=== PATIENT | male | born 1990 | race Caucasian/White ===

== ENCOUNTER 2020-05-20 14:55 | Emergency (ER) | payer SELFPAY ==
[2020-05-20 15:01] VITALS: BP 153/95; PULSE 83; RESP 16; TEMP 36.9; O2SAT 99
--- NOTE | 2020-05-20 15:21 | ED.GENADUL_ITS ---
Discharge Plan Disposition Patient Disposition: HOME Condition: Improving Discharge Details Clinical Impression: Dental infection Primary Care Provider: None,None ED Provider: De Andrew Home Meds and New Rx's Prescriptions: New penicillin V potassium 500 mg tablet 500 mg PO TID 10 Days Qty: 30 RF: 0 Discharge Instructions Instructions: Dental Abscess (ED) Additional Instructions: Warm salt water gargles to speed recovery. Return for worsening swelling, difficulty swallowing, or any other acute concerns. Tylenol as needed for pain. Please phone [facility] to make a follow-up appointment for recheck. As we discussed you will likely need some dental extractions. Please take penicillin as prescribed. Medical Decision Making 30-year-old male with left mandibular buccal swelling and generally poor dentition with multiple dental caries and fractures. He has an odontogenic infection. Discussed with him needle I&D which he declines. He will follow-up with [facility]. I will place him on a course of penicillin. Understands homecare as well as plan for outpatient dentistry follow-up. HPI General Mode of arrival: ambulatory . Date/Time Provider Initiated Documentation: 05/20/20 15:00 . Limitations to Documentation: no limitations . Information obtained by: patient . History of Present Illness 30 year old M presents to the emergency department with the chief complaint of Left jaw swelling 4 days, described as moderate and similar to prior episodes, Quality is described as dull and constant, and is localized to the face, mouth and left. Patient reports no radiation. Patient started experiencing this day(s) and it has been constant. No relieving factors improve symptom(s), No exacerbating factors reported . Patient notes denies fever/chills, headaches, nausea/vomiting and shortness of breath. Patient did receive the following treatments prior to arrival, none Related Data Home Medications Medication Instructions Recorded Confirmed penicillin V potassium 500 mg PO TID 10 Days #30 tab 05/20/20 Previous Rx's Medication Instructions Recorded penicillin V potassium 500 mg PO TID 10 Days #30 tab 05/20/20 Allergies Allergy/AdvReac Type Severity Reaction Status Date / Time hydrocodone bitartrate AdvReac Mild Nausea Unverified 05/20/20 15:05 [From Vicodin] General Stated Complaint: DentalOral OBDULIO: 4 Review of Systems Narrative: No drooling, no change to voice, no difficulty breathing. 6 systems reviewed and otherwise negative [facility] Surgical History (Updated 03/16/13 @ 13:09 by Dee Olsen LPN) WISDOM TEETH REMOVAL STATES 2-3 YEARS AGO IN [place] Social History Smoking/Tobacco Use Status: Current every day Tobacco Type: cigarettes Smoking risk assessment performed?: Yes Drug use: Current Sobriety Substance use type: does not use Exam Narrative Exam Narrative: GEN: awake, alert, oriented 3. Pleasant, well groomed, interactive. HEAD: Normocephalic, atraumatic ENT: Mucous membranes moist, oropharynx with numerous partially broken teeth and dental caries, left mandibular buccal aspect swelling, tympanic membranes clear bilaterally, external ear exam unremarkable EYES: PERRL, EOMI NECK: Full ROM, no JAVON, no menigismus CHEST/RESP: No respiratory distress Neuro: Grossly normal neurologic exam, conversant, interactive. Psych: Speech fluent, thoughts congruent, affect normal Course Vital Signs Vital signs: Vital Signs Temperature 36.9 C 05/20/20 15:01 Pulse 83 05/20/20 15:01 Respiratory Rate 16 05/20/20 15:01 Blood Pressure 153/95 H 05/20/20 15:01 Pulse Oximetry 99 05/20/20 15:01 Temperature 36.9 C 05/20/20 15:01 Temperature Source Skin 05/20/20 15:01 Pulse 83 05/20/20 15:01 Respiratory Rate 16 05/20/20 15:01 Respiratory Effort Non-Labored 05/20/20 15:01 Blood Pressure 153/95 H 05/20/20 15:01 Blood Pressure Position Sitting 05/20/20 15:01 Pulse Oximetry 99 05/20/20 15:01 Oxygen Delivery Method Room Air 05/20/20 15:01 Oxygen Flow Rate 0 05/20/20 15:01 Pain Level 2 05/20/20 15:06
[2020-05-20] MEDS: Penicillin V POTASSIUM 500 MG TAB, 4 TABS/BTL PO (15:25)
== END 2020-05-20 15:26 | disposition home or self-care (01) ==
PROVIDERS: Emergency Provider Emergency Medicine
DX: R22.0 Localized swelling, mass and lump, head (principal); K04.7 Periapical abscess without sinus
CPT/HCPCS: 99283

== ENCOUNTER 2021-06-14 15:52 | Outpatient (REF) | payer BC, SELFPAY ==
[2021-06-14 19:57] LABS: HCT 51.6 % (40.0-50.0); HGB 17.1 g/dL (13.5-17.5); MCH 29.7 pg (27.0-33.0); MCHC 33.1 % (32.0-36.0); MCV 89.7 fL (80-95); MPV 9.4 fL (8.0-11.0); Platelet Count 306 10^3/uL (130-400); RBC 5.75 10^6/uL (4.36-5.78); RDW 12.5 % (11.8-14.1); RDW-SD 41.7 fL; WBC 9.59 10^3/uL (4.4-10.8)
[2021-06-14 20:25] LABS: ALT 52 U/L (16-63); AST 24 U/L (15-37); Albumin 4.3 g/dL (3.4-5.0); Alkaline Phosphatase 126 U/L (46-116); Anion Gap 10.8 mmol/L (3-11); BUN 21 mg/dL (7-18); Bilirubin, Total 0.5 mg/dL (0.2-1.0); CO2 27.2 mmol/L (21.0-32.0); CREATININE 1.2 mg/dL (0.70-1.30); Calcium 9.4 mg/dL (8.5-10.1); Calculated LDL 104 mg/dL (<100); Chloride 102 mmol/L (98-107); Cholesterol 194 mg/dL (<200); Glucose 91 mg/dL (74-106); HDL Cholesterol 38 mg/dL (40-60); Potassium 3.8 mmol/L (3.5-5.1); Sodium 140 mmol/L (136-145); Total Protein 7.7 g/dL (6.4-8.2); Triglyceride 260 mg/dL (<150)
[2021-06-17 10:48] LABS: Hepatitis C Ab w Rflx HCV PCR Negative (Negative)
[2021-06-17 13:43] LABS: HIV-1/2 Ag & Ab Screen Negative (Negative)
[2021-06-17 13:53] LABS: IgA 297 mg/dL (85-499); Interpretation (See Note); Tissue Transglutaminase IgA <1.2 U/mL (<4.0)
== END 2021-06-14 15:53 | disposition home or self-care (01) ==
LOC: NCHCN 15:52
PROVIDERS: Visit Provider Nurse Practitioner Family
DX: Z00.00 Encounter for general adult medical examination without abnormal findings (principal); R14.0 Abdominal distension (gaseous); R19.7 Diarrhea, unspecified; Z11.4 Encounter for screening for human immunodeficiency virus [HIV]; Z11.59 Encounter for screening for other viral diseases; Z13.220 Encounter for screening for lipoid disorders
CPT/HCPCS: 80053; 80061; 82784; 83516; 85027; 86803; 87389; 87449

== ENCOUNTER 2021-07-05 18:50 | Outpatient (REF) | payer BC, SELFPAY ==
[2021-07-07 11:25] LABS: COVID-19 RT-PCR UVMMC Result Negative (Negative)
== END 2021-07-05 18:51 | disposition home or self-care (01) ==
LOC: LBN 18:50
PROVIDERS: Visit Provider Physician Assistant Medical
DX: Z20.822 Contact with and (suspected) exposure to COVID-19 (principal); R05.8 Other specified cough
CPT/HCPCS: U0003

== ENCOUNTER 2022-11-01 17:19 | Emergency (ER) | payer OTHER, SELFPAY ==
[2022-11-01] VITALS (15 sets, daily range): BP systolic 135–162; BP diastolic 82–106; PULSE 79–100; RESP 12–22; TEMP 37.3; O2SAT 94–98
--- NOTE | 2022-11-01 17:15 | RT.EKG_ITS ---
APPROVED REPORT This report is currently processing and has not been officially signed by RAINE PUCKETT.. [facility] TIME OF PERMANENT APPROVAL IS 11/01/2022 17:34 Exam: Resting ECG Reason for Exam: sob Patient Location: E HR:110 bpm ECG Measurements Heart Rate 110 AXIS SC 130 P 74 QRSd 92 QRS 76 QT 310 T 25 QTc 419 Conclusion Sinus tachycardia...rate> 99
--- NOTE | 2022-11-01 17:35 | W.ED.GENAD ---
Discharge Plan Discharge Details Chief Complaint: GenMedical Primary Care Provider: None,None ED Provider: Nahid Mondragon Medical Decision Making EKG unremarkable. Single troponin normal. D-dimer normal. Electrolytes reveal creatinine 1.4. His baseline was 1.2. Patient was again need to drink more fluids. States that after having half a liter of IV fluids he feels a lot better. All his vital signs have normalized. HPI General Date/Time Provider Initiated Documentation: 11/01/22 17:21. HPI Narrative: States that since yesterday afternoon he feels wiped out, intermittently short of breath, feeling his heart racing, no chest pressure. Mild nausea no vomiting. [place] better this morning so he went to the gym for his workout. He did not do his cardio that he usually does. Just some weight. Following The workout he felt again like he did yesterday. No sick contacts other than his daughter who had a cold last week. No headaches. No neck pain. No cough. He did stop smoking about 8 months ago and he did have some cough back then but that has since resolved. No abdominal pain. No diarrhea. Urinating well. No rashes. Related Data Allergies Allergy/AdvReac Type Severity Reaction Status Date / Time hydrocodone bitartrate AdvReac Mild Nausea Unverified 05/20/20 15:05 [From Vicodin] General Stated Complaint: GenMedical OBDULIO: 3 Review of Systems Narrative: 10 point review of system is negative unless otherwise specified in the HPI PFSH All Active Problems (Updated 06/20/20 @ 00:02 by EL CHACKO) Cough (Acute) Laceration (Acute) Surgical History (Updated 03/16/13 @ 13:09 by Dee Olsen LPN) WISDOM TEETH REMOVAL STATES 2-3 YEARS AGO IN [place] Social History Smoking/Tobacco Use Status: Former Tobacco Use Tobacco: How many years used: 20 Smoking risk assessment performed?: Yes Alcohol Intake: current Alcohol Intake frequency: a few times a week Alcohol type: beer and hard liquor Drug use: Current Sobriety Substance use type: does not use Do you feel safe at home: Yes Do you feel safe in your relationship?: Yes Exam Narrative Exam Narrative: Awake alert x3, no acute distress Normocephalic atraumatic PERRLA EOMI MMM anicteric Chest is clear to auscultation bilaterally Heart regular rhythm and rate no murmurs Abdomen soft nondistended nontender Extremities no edema Upper and lower extremities 5/5 strength. Normal gait Neuro grossly intact Skin no rashes. Psych normal. Affect Course Vital Signs Vital signs: Vital Signs Temperature 37.3 C 11/01/22 17:25 Pulse 100 H 11/01/22 17:25 Respiratory Rate 20 11/01/22 17:25 Blood Pressure 162/106 H 11/01/22 17:25 Pulse Oximetry 98 11/01/22 17:25 Temperature 37.3 C 11/01/22 17:25 Temperature Source Oral 11/01/22 17:25 Pulse 100 H 11/01/22 17:25 Respiratory Rate 20 11/01/22 17:25 Respiratory Effort Normal, Non-Labored 11/01/22 17:33 Blood Pressure 162/106 H 11/01/22 17:25 Blood Pressure Position Supine 11/01/22 17:25 Pulse Oximetry 98 11/01/22 17:25 Oxygen Delivery Method Room Air 11/01/22 17:25 Oxygen Flow Rate 0 11/01/22 17:25 Pain Level 0 11/01/22 17:25
[2022-11-01] MEDS: Normal Saline 1,000 ML 1000 ML IV (17:52)
[2022-11-01 17:53] LABS: Abs Immature Grans 0.02 10^3/uL (0.0-0.06); Absolute Basophil Count 0.06 10^3/uL (0.0-0.2); Absolute Eosinophil Count 0.09 10^3/uL (0.0-0.7); Absolute Lymphocyte Count 2.09 10^3/uL (1.2-3.4); Absolute Monocyte Count 0.43 10^3/uL (0.1-0.8); Absolute Neutrophil Count 4.72 10^3/uL (1.2-6.7); Basophils % 0.8; Eosinophils % 1.2; HCT 51.3 % (40.0-50.0); HGB 17.5 g/dL (13.5-17.5); Immature Grans % 0.3; Lymphocytes % 28.2; MCH 29.4 pg (27.0-33.0); MCHC 34.1 % (32.0-36.0); MCV 86 fL (80-95); MPV 8.3 fL (8.0-11.0); Monocytes % 5.8; Neutrophils % 63.7; Platelet Count 275 10^3/uL (130-400); RBC 5.95 10^6/uL (4.36-5.78); RDW 12.3 % (11.8-14.1); RDW-SD 38.6 fL; WBC 7.41 10^3/uL (4.4-10.8)
[2022-11-01 18:19] LABS: Anion Gap 9.3 mmol/L (3-11); BUN 20 mg/dL (7-18); CO2 26.7 mmol/L (21.0-32.0); CREATININE 1.4 mg/dL (0.70-1.30); Calcium 9.4 mg/dL (8.5-10.1); Chloride 102 mmol/L (98-107); Estimated GFR 68.06 (mL/min/1.73m2); Glucose 105 mg/dL (74-106); Potassium 3.5 mmol/L (3.5-5.1); Sodium 138 mmol/L (136-145); Troponin I < 50 ng/L (<or=60)
[2022-11-01 18:26] LABS: TSH (W/Ref FT4) 2.92 uIU/mL (0.36-3.74)
[2022-11-01 18:28] LABS: D-Dimer 199 ng/mlFEU (<500)
== END 2022-11-01 19:00 | disposition home or self-care (01) ==
PROVIDERS: Emergency Provider Emergency Medicine
DX: R06.02 Shortness of breath (principal); R42 Dizziness and giddiness; R53.83 Other fatigue; E86.0 Dehydration; Z87.891 Personal history of nicotine dependence
CPT/HCPCS: 36415; 80048; 93005; 96360; 99284; 84443; 84484; 85025; 85379; 93010; 99283

== ENCOUNTER 2023-07-10 11:14 | Emergency (ER) | payer OTHER, SELFPAY ==
[2023-07-10 11:19] VITALS: BP 147/86; PULSE 111; RESP 18; TEMP 36.3; O2SAT 98
--- NOTE | 2023-07-10 11:31 | DI.CT_ITS ---
Exam(s) CT ABDOMEN PELVIS CTA EXAM: CT ABDOMEN PELVIS CTA CLINICAL HISTORY: lower abdomen pain, lower gi bleed. TECHNIQUE: Imaging Protocol: Axial CT angiography was performed with multi-slice acquisition and m ulti-planar and/or 3D reconstructions. CONTRAST MATERIAL: Intravenous: Omnipaque 350 Contrast volume:100mL Oral: No COMPARISON: No exams were available for comparison FINDINGS: ABDOMEN AND PELVIS: Abdomen: Celiac axis/mesenteric arteries: No evidence of occlusion or significant stenosis. Renal Arteries: No evidence of occlusion or significant stenosis. Aorta: No evidence of occlusion or significant stenosis. No aneurysm or dissection. Pelvis: Iliac Arteries: No evidence of occlusion or significant stenosis. Common Femoral Arteries: No evidence of occlusion or significant stenosis. ABDOMEN: Lung bases: Unremarkable. Liver: Normal density. No measurable mass. Portal, Superior Mesenteric, and Splenic Veins: Unremarkable. Gallbladder and Biliary Tract: No radiodense calculus or dilation. Pancreas: Normal density, no abnormal calcifications or inflammatory process. Spleen: Normal. Adrenals: No masses seen. Kidneys: Normal size, contour and axis. No radiodense stones or obstructive uropathy. There is a simp le cyst in the lower pole of the left kidney. No follow-up is recommended. Bowel: There is bowel wall thickening seen in proximal jejunal loops in the left abdomen suggesting i nfectious or inflammatory enteritis. There is no evidence of bowel obstruction. The stomach is inco mpletely distended limiting evaluation. No gross abnormalities identified. Appendix is unremarkable . Peritoneal Cavity: No ascites, collection or mesenteric inflammatory response. No free air. Lymph Nodes: Within normal limits. Bones: Within normal limits for the patient's age. Soft Tissues: There is a small fat containing umbilical hernia. There are small fat containing bilat eral inguinal hernias. PELVIS: Bladder: Symmetric distention, no gross wall thickening. Reproductive Organs: Unremarkable as visualized. Lymph Nodes: Within normal limits. Bones: Within normal limits. IMPRESSION: 1. No evidence of active GI bleed. 2. Wall thickening involving the proximal small bowel in the left abdomen consistent with inflammator y or infectious enteritis. Please correlate clinically. RADIATION DOSE DELIVERED: 3,053.75mGy.cm Total DLP DATA REPOSITORY: All CT scans at this facility are submitted to the National Radiology Data Registry (NRDR) Dose Index Registry (DIR) with the [employer] ([employer]). RADIATION OPTIMIZATION: All CT scans at this facility use at least one of these dose optimization te chniques: automated exposure control; mA and/or kV adjustment per patient size (includes targeted exa ms where dose is matched to clinical indication); or iterative reconstruction.
--- NOTE | 2023-07-10 11:32 | ED.GENADUL_ITS ---
HPI General Mode of arrival: ambulatory . Date/Time Provider Initiated Documentation: 07/10/23 11:15 . Limitations to Documentation: no limitations . Information obtained by: patient . History of Present Illness 33 year old M presents to the emergency department with the chief complaint of bloody bowel movements, described as moderate, Patient started experiencing this day(s) (3) and it has been constant. No relieving factors improve symptom(s), No exacerbating factors reported . Patient notes denies chest pain, fever/chills and shortness of breath. Patient did receive the following treatments prior to arrival, none Related Data Home Medications Medication Instructions Recorded Confirmed amoxicillin 875 mg-potassium 1 tab PO BID 7 days #14 tabs 07/10/23 clavulanate 125 mg tablet Previous Rx's Medication Instructions Recorded amoxicillin 875 mg-potassium 1 tab PO BID 7 days #14 tabs 07/10/23 clavulanate 125 mg tablet Allergies Allergy/AdvReac Type Severity Reaction Status Date / Time hydrocodone bitartrate AdvReac Mild Nausea Unverified 07/10/23 11:18 [From Vicodin] General Stated Complaint: GI Bleed OBDULIO: 2 Review of Systems All systems reviewed & are unremarkable except as noted in HPI and below Constitutional Constitutional: Denies chills, Denies fever(s) and Denies weakness Cardiovascular Cardiovascular: Denies chest pain and Denies dyspnea Respiratory Respiratory: Denies cough and Denies dyspnea Gastrointestinal Gastrointestinal: Reports abdominal pain, Denies nausea and Denies vomiting Genitourinary Genitourinary: Denies dysuria Integumentary/Breasts Skin/Breast: Denies rash Neurologic Neurologic: Denies weakness Exam Const General: no acute distress Orientation: alert [facility] Head: normal to inspection Ears: external ears normal General nose exam: external nose normal Mouth: moist mucous membranes Eyes General: appearance normal, both eyes and all related structures Neck Neck: normal visual inspection Resp Effort & Inspection: normal respiratory effort and able to speak in complete sentences Cardio Rate: regular rate GI Palpation: soft, not firm, no guarding and tender Skin General skin exam: no rashes or lesions noted Neuro General: patient alert and patient oriented x3 Extrem General: normal to inspection Psych Mental Status: mental status grossly normal Course Vital Signs Vital signs: Vital Signs Temperature 36.3 C L 07/10/23 11:19 Pulse 111 H 07/10/23 11:19 Respiratory Rate 18 07/10/23 11:19 Blood Pressure 147/86 H 07/10/23 11:19 Pulse Oximetry 98 07/10/23 11:19 Temperature 36.3 C L 07/10/23 11:19 Temperature Source Oral 07/10/23 11:19 Pulse 111 H 07/10/23 11:19 Respiratory Rate 18 07/10/23 11:19 Respiratory Effort Normal, Non-Labored 07/10/23 11:23 Blood Pressure 147/86 H 07/10/23 11:19 Pulse Oximetry 98 07/10/23 11:19 Pain Level 7 07/10/23 11:19 Medical Decision Making 33-year-old male with no chronic medical problems, who comes in with 3 days of lower abdominal cramping and bright red blood per rectum. He denies any fevers, nausea vomiting, chest pain, difficulty breathing. He is ambulating on arrival, conscious and alert and oriented x 4. His abdomen is soft and nondistended, has some tenderness in the left lower quadrant. On rectal exam has no external hemorrhoids, no anal fissures. Given his reported lower abdominal cramping and pain along with the bright red blood per rectum we will proceed with CBC CMP lipase and obtain CTA abdomen and pelvis. labs unremarkable, no anemia and CTA without significant acute findings, does have wall thickening of the small bowel consistent with inflammatory or infectious enteritis. Patient is stable has minimal left lower quadrant tenderness. Given reassuring workup feel he can be discharged and follow-up with general surgery to discuss having an outpatient colonoscopy. Given the CT findings of potential infectious enteritis will cover with a dose of Augmentin and send a prescription to the pharmacy for him. He is stable for discharge, return precautions given Differential Diagnosis Differential Diagnosis: Internal hemorrhoids, anemia, diverticulitis Imaging Data Radiologic Study: Attestation: I personally reviewed and interpreted this imaging study as follows: Imaging: CT Scan Radiologist's impression: IMPRESSION: 1. No evidence of active GI bleed. 2. Wall thickening involving the proximal small bowel in the left abdomen consistent with inflammatory or infectious enteritis. Please correlate clinically. Quality:SDOH Health Related Social Needs: No Data to Display PFSH All Active Problems (Updated 07/10/23 @ 13:40 by Gordy Ford MD) Lower gastrointestinal bleed (Acute) Laceration (Acute) Cough (Acute) Surgical History (Updated 03/16/13 @ 13:09 by Dee Olsen LPN) WISDOM TEETH REMOVAL STATES 2-3 YEARS AGO IN [place] Social History Smoking/Tobacco Use Status: Former Tobacco Use Quit Date: 03/25/22 Tobacco: How many years used: 20 Smoking risk assessment performed?: Yes Alcohol Intake: current Alcohol Intake frequency: a few times a week Alcohol type: beer and hard liquor Drug use: Current Sobriety Substance use type: does not use and former substance user Housing: house Do you feel safe at home: Yes Do you feel safe in your relationship?: Yes PAWSS Have you Been Recently Intoxicated or Drunk Within the Last 30 days?: No Have you Ever Experienced Previous Episodes of Alcohol Withdrawal?: No Have you ever Experienced Withdrawal Seizures?: No Have you ever Experienced Delirium Tremens(DT)s?: No Have you ever undergone Alcohol Rehabilitation Treatment (i.e, inpt ot outpatient treatment programs)?: No Have you ever Experienced Blackouts?: Yes Have you ever Combined Alcohol with other Downers within the last 90 days?: No Have you ever Combined Alcohol with any other Substance of Abuse during the last 90 days?: No Positive Blood Alcohol level on Presentation? [PCS.BAL]: No Evidence of Increased Autonomic Activity (i.e. HR>120, tremor, sweating, agitation, nausea)?: No Result: 1 Discharge Plan Disposition Patient Disposition: Home Condition: Stable Discharge Details Clinical Impression: Lower gastrointestinal bleed Primary Care Provider: Unknown,Unknown ED Provider: Gordy Ford Home Meds and New Rx's Prescriptions: New amoxicillin-pot clavulanate 875-125 mg tablet 1 tab PO BID 7 Days Qty: 14 0RF Discharge Instructions Additional Instructions: Your blood work did not show any anemia. Your CAT scan did not show any concerning findings other than a small area of your colon that was mildly inflamed. You should be contacted with the appointment to follow-up with general surgery If you feel more ill, have severe worsening abdominal pain, or new symptoms such as difficulty breathing return to the emergency department for reevaluation
[2023-07-10 11:46] LABS: Abs Immature Grans 0.03 10^3/uL (0.0-0.06); Absolute Basophil Count 0.03 10^3/uL (0.0-0.2); Absolute Eosinophil Count 0.02 10^3/uL (0.0-0.7); Absolute Lymphocyte Count 0.86 10^3/uL (1.2-3.4); Absolute Neutrophil Count 8.69 10^3/uL (1.2-6.7); Basophils % 0.3; Eosinophils % 0.2; HCT 49.8 % (40.0-50.0); HGB 16.8 g/dL (13.5-17.5); Immature Grans % 0.3; Lymphocytes % 8.4; MCHC 33.7 % (32.0-36.0); MCV 83 fL (80-95); MPV 8.1 fL (8.0-11.0); Monocytes % 5.9; Neutrophils % 84.9; Platelet Count 273 10^3/uL (130-400); RBC 5.99 10^6/uL (4.36-5.78); RDW 12.7 % (11.8-14.1); RDW-SD 38.4 fL; WBC 10.23 10^3/uL (4.4-10.8)
[2023-07-10 12:01] LABS: ALT 40 U/L (16-63); AST 17 U/L (15-37); Albumin 4.2 g/dL (3.4-5.0); Alkaline Phosphatase 112 U/L (46-116); Anion Gap 9.8 mmol/L (3-11); BUN 14 mg/dL (7-18); Bilirubin, Total 0.9 mg/dL (0.2-1.0); CO2 27.2 mmol/L (21.0-32.0); CREATININE 1.2 mg/dL (0.70-1.30); Calcium 9.2 mg/dL (8.5-10.1); Chloride 100 mmol/L (98-107); Estimated GFR 81.38 (mL/min/1.73m2); Glucose 104 mg/dL (74-106); Lipase 38 U/L (16-77); Magnesium 1.8 mg/dL (1.8-2.4); Sodium 137 mmol/L (136-145); Total Protein 8.1 g/dL (6.4-8.2)
[2023-07-10 12:03] LABS: INR 1.1 (0.9-1.1); Prothrombin Time 11.2 sec (9.1-11.1)
[2023-07-10] MEDS: Omnipaque 350 MG/ML 100 ML BTL IJ (12:31)
[2023-07-10] MEDS: Normal Saline - Diluent 50 ML VIAL IJ (12:32)
--- OUTSIDE RECORDS SUMMARY | 2023-07-10 13:12 | XMS_ITS | Continuity of Care Document ---
Author Name Unknown Organization [facility] Occup[facility] Address [address] [place] [address] Encounter [facility] FIN NBR [id number] Date(s): 07/14/22 - 07/14/22 [facility] Occupational [facility] [address] [place], [place] [address] Encounter Diagnosis Extensor tendinitis of hand(Discharge Diagnosis) - 07/14/22 Discharge Disposition: Home or Self Care Attending Physician: Kip Ball. PA Allergies, Adverse Reactions, Alerts No Known Medication Allergies Functional Status 07/14/22 Other exposure to Infectious Disease Non e Medications No Known Medications Problem List No Known Problems Vital Signs Most recent to oldest [Reference Range]: 1 Peripheral Pulse Rate [60-100 bpm] 78 bp m (07/14/22 9:54 AM) Blood Pressure [90-140/60-90 mmHg] 155/1 00mmHg *HI* (07/14/22 9:54 AM) Weight 114.76 kg (07/14/22 9:54 AM) Weight Measured (lbs) 253.002 lb (07/14/22 9:54 AM) Height 180.34 cm (07/14/22 9:54 AM) Height/Length Measured (inches) 71 inch (07/14/22 9:54 AM) BSA Measured 2.4 m2 (07/14/22 9:54 AM) Body Mass Index 35.29 kg/m2 (07/14/22 9:54 AM) Social History Social History Type Response Tobacco Former tobacco user Tobacco Use:. Sex Physician Outpatient Note * Kip Ball. PA: PERFORM Event Display: Office Clinic Note Physician Authored Date: [id number] YARI MULLEN :1990 Age:32 years Sex:Male Visit Date:07/14/2022 Chief Complaint wc follow up pt reports right wrist painful to touch History of Present Illness Follow-up right wrist pain. ??Patient notes 90 to 95% better. ??He feels and go back to full activity at work. ??He denies any new complaints. ??Did not have direct injury. ??Diagnosed with tendinitis.?? He denies any numbness, tingling, weakness. Physical Exam Vitals & Measurements HR:??78??(Peripheral)?? BP:??155/100?? SpO2:??99%?? HT:??180.34??cm?? WT:??114.76??kg?? BMI:??35.29?? Pain Score:??1?? BSA:??2.4?? Well-appearing no acute distress. ??Examination of the right wrist shows normal strength and function in all motions. ??He has normal driftman strength.?? Only minimal discomfort on wrist extension. ??Noelbow tenderness.?? No swelling. Assessment/Plan 1.??Extensor tendinitis of hand??M77.8 At this time I feel he can return to work full activity. ??No need for follow-up unless he does notcontinue to improve. ??Continue home exercises.?? Recommend gentle stretching prior to working. Problem List/Past Medical History Ongoing No chronic problems Historical No qualifying data Medications No active medications Allergies No Known Medication Allergies Social History Electronic Cigarette/Vaping Electronic Cigarette Use: Never. Tobacco Former tobacco user Tobacco Use:. Electronically Signed on 07/14/22 10:25 AM Kip DIAZ
--- OUTSIDE RECORDS SUMMARY | 2023-07-10 13:12 | XMS_ITS | Continuity of Care Document ---
Author Name Unknown Organization [facility] Occupationa l Health Address [address] [place] [address] Encounter [facility] NBR [id number] Date(s): 07/03/22 - 07/03/22 [facility] Occupational Health [address], [place] [address] Encounter Diagnosis Wrist strain(Discharge Diagnosis) - 07/03/22 Extensor tendinitis of hand(Discharge Diagnosis) - 07/03/22 Discharge Disposition: Home or Self Care Allergies, Adverse Reactions, Alerts No Known Medication Allergies Functional Status 07/03/22 Other exposure to Infectious Disease Non e Medications No Known Medications Problem List No Known Problems Vital Signs Most recent to oldest [Reference Range]: 1 Peripheral Pulse Rate [60-100 bpm] 90 bp m (07/03/22 9:21 AM) Blood Pressure [90-140/60-90 mmHg] 152/8 6mmHg *HI* (07/03/22 9:21 AM) Weight 114.76 kg (07/03/22 9:21 AM) Weight Measured (lbs) 253.002 lb (07/03/22 9:21 AM) Height 180.34 cm (07/03/22 9:21 AM) Height/Length Measured (inches) 71 inch (07/03/22 9:21 AM) BSA Measured 2.4 m2 (07/03/22 9:21 AM) Body Mass Index 35.29 kg/m2 (07/03/22 9:21 AM) Social History Social History Type Response Tobacco Former tobacco user Tobacco Use:. Sex Hospital Discharge Instructions Patient Education 07/03/2022 08:43:59 Tendinitis Tendinitis Tendinitis is inflammation of a tendon. A tendon is a strong cord of tissue that connects muscle tobone. Tendinitis can affect any tendon, but it most commonly affects the: ??? Shoulder tendon (rotator cuff). ??? Ankle tendon (Achilles tendon). ??? Elbow tendon (triceps tendon). ??? Tendons in the wrist. What are the causes? This condition may be caused by: ??? Overusing a tendon or muscle. This is common. ??? Age-related wear and tear. ??? Injury. ??? Inflammatory conditions, such as arthritis. ??? Certain medicines. What increases the risk? You are more likely to develop this condition if you do activities that involve the same movements over and over again (repetitive motions). What are the signs or symptoms? Symptoms of this condition may include: ??? Pain. ??? Tenderness. ??? Mild swelling. ??? Decreased range of motion. How is this diagnosed? This condition is diagnosed with a physical exam. You may also have tests, such as: ??? Ultrasound. This uses sound waves to make an image of the inside of your body in the affected area. ??? MRI. How is this treated? This condition may be treated by resting, icing, applying pressure (compression), and raising (elevating) the affected area above the level of your heart. This is known as RICE therapy. Treatment mayalso include: ??? Medicines to help reduce inflammation or to help reduce pain. ??? Exercises or physical therapy to strengthen and stretch the tendon. ??? A brace or splint. ??? Surgery. This is rarely needed. Follow these instructions at home: If you have a splint or brace: ??? Wear the splint or brace as told by your health care provider. Remove it only as told by your health care provider. ??? Loosen the splint or brace if your fingers or toes tingle, become numb, or turn cold and blue. ??? Keep the splint or brace clean. ??? If the splint or brace is not waterproof: ??? Do not let it get wet. ??? Cover it with a watertight covering when you take a bath or shower. Managing pain, stiffness, and swelling ??? If directed, put ice on the affected area. ??? If you have a removable splint or brace, remove it as told by your health care provider. ??? Put ice in a plastic bag. ??? Place a towel between your skin and the bag. ??? Leave the ice on for 20 minutes, 2???3 times a day. ??? Move the fingers or toes of the affected limb often, if this applies. This can help to prevent stiffness and lessen swelling. ??? If directed, raise (elevate) the affected area above the level of your heart while you are sitting or lying down. ??? If directed, apply heat to the affected area before you exercise. Use the heat source that yourhealth care provider recommends, such as a moist heat pack or a heating pad. ??? Place a towel between your skin and the heat source. ??? Leave the heat on for 20???30 minutes. ??? Remove the heat if your skin turns bright red. This is especially important if you are unable to feel pain, heat, or cold. You may have a greater risk of getting burned. Driving ??? Do not drive or use heavy machinery while taking prescription pain medicine. ??? Ask your health care provider when it is safe to drive if you have a splint or brace on any part of your arm or leg. Activity ??? Rest the affected area as told by your health care provider. ??? Return to your normal activities as told by your health care provider. Ask your health care provider what activities are safe for you. ??? Avoid using the affected area while you are experiencing symptoms of tendinitis. ??? Do exercises as told by your health care provider. General instructions ??? If you have a splint, do not put pressure on any part of the splint until it is fully hardened.This may take several hours. ??? Wear an elastic bandage or compression wrap only as told by your health care provider. ??? Take [id number] and prescription medicines only as told by your health care provider. ??? Keep all follow-up visits as told by your health care provider. This is important. Contact a health care provider if: ??? Your symptoms do not improve. ??? You develop new, unexplained problems, such as numbness in your hands. Summary ??? Tendinitis is inflammation of a tendon. ??? You are more likely to develop this condition if you do activities that involve the same movements over and over again. ??? This condition may be treated by resting, icing, applying pressure (compression), and elevatingthe area above the level of your heart. This is known as RICE therapy. ??? Avoid using the affected area while you are experiencing symptoms of tendinitis. This information is not intended to replace advice given to you by your health care provider. Make sure you discuss any questions you have with your health care provider. Document Revised: 11/16/2018 Document Reviewed: 09/29/2018 [employer] Charge Patient Education ?? 2021 [employer]. Physician Outpatient Note * Cyndee Hills APRN: PERFORM Event Display: Office Clinic Note Physician Authored Date: [id number] YARI MULLEN :1990 Age:32 years Sex:Male Visit Date:07/03/2022 Chief Complaint pt reports putting pressure on right wrist/hand at work right wrist pain and swelling History of Present Illness Patient is a 32-year-old male who presents today with a chief complaint of right wrist??pain. ??He states while working??over the last few days he had increased tenderness to the??dorsal aspect of the right wrist, causing flexion and extension to be uncomfortable. ??He noticed swelling. Physical Exam Vitals & Measurements HR:??90??(Peripheral)?? BP:??152/86?? SpO2:??96%?? HT:??180.34??cm?? WT:??114.76??kg?? BMI:??35.29?? Pain Score:??7?? BSA:??2.4?? General: Well-appearing, no acute distress, alert and oriented x3. Skin: No concerning lesions in examined areas. Head: Normal cephalic without trauma or injury. Neck: Supple, nontender, normal range of motion Musculoskeletal:??Tenderness to the dorsal aspect of the wrist??and forearm,??extension of the??fourth and??fifth??phalanges??limited but intact. Medical Decision Making: Patient was evaluated for a wrist injury. ??He was placed in a supportive??brace for stability and comfort, I recommended that he RICE and take ibuprofen??routinely every 6-8 hours over the next few days.?? He was provided modifications and he will recheck in 1 week. Assessment/Plan 1.??Wrist strain??S66.919A 2.??Extensor tendinitis of hand??M77.8 Patient Instructions Rest, ice, supportive??wrist splint??while working??and as needed. ??Modifications per documentation??ibuprofen 600 mg every 6-8 hours, acetaminophen.?? Recheck 1 week Patient Education Tendinitis Problem List/Past Medical History Ongoing No chronic problems Historical No qualifying data Medications No active medications Allergies No Known Medication Allergies Social History Electronic Cigarette/Vaping Electronic Cigarette Use: Never. Tobacco Former tobacco user Tobacco Use:. Electronically Signed on 07/03/22 10:21 AM Cyndee Hills APRN Outpatient Summary note * Cyndee Hills APRN: PERFORM Event Display: Ambulatory Patient Summary Authored Date: [id number] YARI MULLEN :1990 Age:32 years Sex:Male Visit Date:07/03/2022 Ambulatory Visit Instructions We would like to thank you for allowing us to assist you with your healthcare needs. The following includes patient education materials and information regarding your injury/illness. After you leave the office, you may get your health information including your test results, physician notes and discharge information by accessing your Patient Portal. If you do not have a patient portal account set up, please contact __. Your Next Steps Instructions From Your Care Team Rest, ice, supportive??wrist splint??while working??and as needed. ??Modifications per documentation??ibuprofen 600 mg every 6-8 hours, acetaminophen.?? Recheck 1 week Your Summary Your Diagnosis Wrist strain Extensor tendinitis of hand Allergies No Known Medication Allergies Education Materials Tendinitis Tendinitis is inflammation of a tendon. A tendon is a strong cord of tissue that connects muscle tobone. Tendinitis can affect any tendon, but it most commonly affects the: ? Shoulder tendon (rotator cuff). ? Ankle tendon (Achilles tendon). ? Elbow tendon (triceps tendon). ? Tendons in the wrist. What are the causes? This condition may be caused by: ? Overusing a tendon or muscle. This is common. ? Age-related wear and tear. ? Injury. ? Inflammatory conditions, such as arthritis. ? Certain medicines. What increases the risk? You are more likely to develop this condition if you do activities that involve the same movements over and over again (repetitive motions). What are the signs or symptoms? Symptoms of this condition may include: ? Pain. ? Tenderness. ? Mild swelling. ? Decreased range of motion. How is this diagnosed? This condition is diagnosed with a physical exam. You may also have tests, such as: ? Ultrasound. This uses sound waves to make an image of the inside of your body in the affected area. ? MRI. How is this treated? This condition may be treated by resting, icing, applying pressure (compression), and raising (elevating) the affected area above the level of your heart. This is known as RICE therapy. Treatment mayalso include: ? Medicines to help reduce inflammation or to help reduce pain. ? Exercises or physical therapy to strengthen and stretch the tendon. ? A brace or splint. ? Surgery. This is rarely needed. Follow these instructions at home: If you have a splint or brace: ? Wear the splint or brace as told by your health care provider. Remove it only as told by your health care provider. ? Loosen the splint or brace if your fingers or toes tingle, become numb, or turn cold and blue. ? Keep the splint or brace clean. ? If the splint or brace is not waterproof: ? Do not let it get wet. ? Cover it with a watertight covering when you take a bath or shower. Managing pain, stiffness, and swelling ? If directed, put ice on the affected area. ? If you have a removable splint or brace, remove it as told by your health care provider. ? Put ice in a plastic bag. ? Place a towel between your skin and the bag. ? Leave the ice on for 20 minutes, 2???3 times a day. ? Move the fingers or toes of the affected limb often, if this applies. This can help to prevent stiffness and lessen swelling. ? If directed, raise (elevate) the affected area above the level of your heart while you are sitting or lying down. ? If directed, apply heat to the affected area before you exercise. Use the heat source that your health care provider recommends, such as a moist heat pack or a heating pad. ? Place a towel between your skin and the heat source. ? Leave the heat on for 20???30 minutes. ? Remove the heat if your skin turns bright red. This is especially important if you are unable to feel pain, heat, or cold. You may have a greater risk of getting burned. Driving ? Do not drive or use heavy machinery while taking prescription pain medicine. ? Ask your health care provider when it is safe to drive if you have a splint or brace on any part ofyour arm or leg. Activity ? Rest the affected area as told by your health care provider. ? Return to your normal activities as told by your health care provider. Ask your health care provider what activities are safe for you. ? Avoid using the affected area while you are experiencing symptoms of tendinitis. ? Do exercises as told by your health care provider. General instructions ? If you have a splint, do not put pressure on any part of the splint until it is fully hardened. This may take several hours. ? Wear an elastic bandage or compression wrap only as told by your health care provider. ? Take qzou-bwd-cioohla and prescription medicines only as told by your health care provider. ? Keep all follow-up visits as told by your health care provider. This is important. Contact a health care provider if: ? Your symptoms do not improve. ? You develop new, unexplained problems, such as numbness in your hands. Summary ? Tendinitis is inflammation of a tendon. ? You are more likely to develop this condition if you do activities that involve the same movements over and over again. ? This condition may be treated by resting, icing, applying pressure (compression), and elevating thearea above the level of your heart. This is known as RICE therapy. ? Avoid using the affected area while you are experiencing symptoms of tendinitis. This information is not intended to replace advice given to you by your health care provider. Make sure you discuss any questions you have with your health care provider. Document Revised: 11/16/2018 Document Reviewed: 09/29/2018 [employer] Charge Patient Education ?? 2021 [employer] Electronically Signed on: 07/03/2022 09:44 ESTSigned by:CHAY
--- OUTSIDE RECORDS SUMMARY | 2023-07-10 13:12 | XMS_ITS | Continuity of Care Document ---
Author Name Unknown Organization [facility] Address [address] [place] [id number] Encounter [facility] FIN NBR [id number] Date(s): 04/28/22 - 04/28/[address] [address]- Discharge Disposition: Left Without Being Seen Attending Physician: John Hernandez MD
--- OUTSIDE RECORDS SUMMARY | 2023-07-10 13:12 | XMS_ITS | Continuity of Care Document ---
Author Name Unknown Organization [facility] Address [address] [place] [address] Encounter [facility] NBR [id number] Date(s): 07/03/22 - 07/03/22 [facility] [address] [place], [place] [address] Encounter Diagnosis Strain of unspecified muscle, fascia and tendon at wrist and hand level, unspecified hand, initial encounter(Final) - Discharge Disposition: Home or Self Care Attending Physician: Cyndee Hills APRN Admitting Physician: Cyndee Hills APRN Allergies, Adverse Reactions, Alerts No Known Medication Allergies Problem List No Known Problems Results Radiology Reports * Exam Date Time Procedure Performing Provider Status 07/03/22 9:52 AM XR Wrist Complete 3+ Views Right Radha Cook (Verified) Notes: (XR Wrist Complete 3+ Views Right) Reason For Exam: pain after injury XR Wrist Complete 3+ Views Right EXAM DESCRIPTION: XR Wrist Complete 3+ Views Right 07/03/2022 INDICATION: PAIN AFTER INJURY COMPARISON: None FINDINGS: No acute fracture, dislocation or bone destructive process. Joint spaces are maintained. No radiographic foreign bodies are seen. IMPRESSION: 1. No acute fracture, dislocation or bone destructive process. JOB #: [id number] Final Signed by: Francis Merida MD Signed (Electronic Signature): 07/03/2022 10:01 am Social History Social History Type Response Tobacco Former tobacco user Tobacco Use:. Sex XR Wrist - right GE 3 Views * Francis Merida MD: VERIFY, VERIFY Event Display: Report EXAM DESCRIPTION: XR Wrist Complete 3+ Views Right 07/03/2022 INDICATION: PAIN AFTER INJURY COMPARISON: None FINDINGS: No acute fracture, dislocation or bone destructive process. Joint spaces are maintained. No radiographic foreign bodies are seen. IMPRESSION: 1. No acute fracture, dislocation or bone destructive process. JOB #: [id number] Final Signed by: Francis Merida MD Signed (Electronic Signature): 07/03/2022 10:01 am
--- OUTSIDE RECORDS SUMMARY | 2023-07-10 13:12 | XMS_ITS | Continuity of Care Document ---
Author Name Unknown Organization [facility] Occupationa l Health Address [address] [place] [address] Encounter [facility] NBR [id number] Date(s): 12/18/22 - 12/18/22 [facility] Occupational Health [address] [place], [place] [address] Encounter Diagnosis Bee sting(Discharge Diagnosis) - 12/18/22 Discharge Disposition: Home or Self Care Attending Physician: Genaro CARRION, Wendie Allergies, Adverse Reactions, Alerts No Known Medication Allergies Medications Claritin 10 mg oral tablet 10 mg = 1 tab, Oral, Daily, # 14 tab, 0 Refill(s), Pharmacy: [id number] Start Date: 12/18/22 Stop Date: 01/01/23 Status: Ordered triamcinolone 0.5% topical ointment 1 bridger, Topical, BID, # 60 g, 1 Refill(s), Pharmacy: [id number] Start Date: 12/18/22 Stop Date: 01/15/23 Status: Ordered Problem List No Known Problems Vital Signs Most recent to oldest [Reference Range]: 1 Temperature Tympanic [36.6-37.9 Deg C] 3 6.7 Deg C (12/18/22 11:35 AM) Peripheral Pulse Rate [60-100 bpm] 70 bp m (12/18/22 11:35 AM) Blood Pressure [90-140/60-90 mmHg] 149/9 4mmHg *HI* (12/18/22 11:35 AM) Weight 106.59 kg (12/18/22 11:35 AM) Weight Measured (lbs) 234.99 lb (12/18/22 11:35 AM) Height 180.34 cm (12/18/22 11:35 AM) Height/Length Measured (inches) 71 inch (12/18/22 11:35 AM) BSA Measured 2.31 m2 (12/18/22 11:35 AM) Body Mass Index 32.77 kg/m2 (12/18/22 11:35 AM) Social History Social History Type Response Tobacco Former tobacco user Tobacco Use:. Sex Physician Outpatient Note * Wendie Lam PA-C: PERFORM Event Display: Office Clinic Note Physician Authored Date: [id number] YARI MULLEN :1990 Age:32 years Sex:Male Visit Date:12/18/2022 Chief Complaint wc initial pt reports he was mowing and weedwhacking at work and was stung by something, swelling, itching, burning sensation felt feverish last night happened on thursday, symptoms getting worse History of Present Illness Patient is a 32-year-old male who presents to the occupational health office today??for??3-day history of??painful, itchy??rash of the right??sided thoracic back. ??He was stung by some insect while at work??3 days ago??while weed whacking, suspect it was a bee. ??He has not tried anything topically??or orally for symptoms.?? No history of severe allergic reaction??in the past. ??No swelling of the face lips or tongue, abdominal pain, numbness or tingling sensation. Physical Exam Vitals & Measurements T:??36.7?C ??(Tympanic)?? HR:??70??(Peripheral)?? BP:??149/94?? SpO2:??99%?? HT:??180.34??cm?? WT:??106.59??kg?? BMI:??32.77?? Pain Score:??6?? BSA:??2.31?? He is well-appearing and in no acute distress, very pleasant. Right-sided thoracic back: There is a 4??cm area of induration??with excoriations, poorly demarcated. ??No fluctuance, puncta or retained??insect stinger.?? Nontender to palpation. No swelling of the face lips or tongue. Lung sounds are clear. ??No wheezing. Medical Decision Making: Insect stin-year-old male that sustained insect sting to the right side thoracic back 3 days ago??that has been progressively??worsening.?? No evidence of cellulitis.?? I will start him on topical triamcinolone cream??and 10 mg Claritin at bedtime for symptom management. ??Return precautions provided.?? No work restrictions. ??He will follow-up as needed. Assessment/Plan 1.??Bee sting??T63.441A Ordered: Claritin 10 mg oral tablet, 10 mg = 1 tab, Oral, Daily, # 14 tab, 0 Refill(s), Pharmacy: [facility] triamcinolone 0.5% topical ointment, 1 bridger, Topical, BID, # 60 g, 1 Refill(s), Pharmacy: [facility] ?? Problem List/Past Medical History Ongoing No chronic problems Historical No qualifying data Medications Claritin 10 mg oral tablet, 10 mg= 1 tab, Oral, Daily triamcinolone 0.5% topical ointment, 1 bridger, Topical, BID, 1 refills Allergies No Known Medication Allergies Social History Electronic Cigarette/Vaping Electronic Cigarette Use: Never. Tobacco Former tobacco user Tobacco Use:. Electronically Signed on 12/18/22 11:58 AM Wendie Lam PA-C
[2023-07-10] MEDS: Amoxicillin 875/Clav. 125 TAB PO (14:02)
--- NOTE | 2023-07-11 02:08 | NUR.NOTE ---
Referral faxed to [phone] General Surgery for Lower GI Bleeding.
--- NOTE | 2023-07-11 02:15 | NUR.NOTE ---
Referral faxed to [facility] General Surgery for Lower GI Bleeding to follow-up next week.
== END 2023-07-10 14:03 | disposition home or self-care (01) ==
PROVIDERS: Emergency Provider Emergency Medicine
DX: K92.2 Gastrointestinal hemorrhage, unspecified (principal); R10.32 Left lower quadrant pain; Z87.891 Personal history of nicotine dependence
CPT/HCPCS: 36415; 80053; 83690; 86850; 86900; 86901; 99285; 74174; 81003; 83735; 85025; 85610; 85730; 99284; J3490

== ENCOUNTER 2023-07-31 17:07 | Outpatient (REF) | payer OTHER, SELFPAY ==
[2023-07-31 16:04] LABS: ALT 44 U/L (16-63); AST 23 U/L (15-37); Alkaline Phosphatase 124 U/L (46-116); Anion Gap 7.6 mmol/L (3-11); BUN 18 mg/dL (7-18); Bilirubin, Total 0.4 mg/dL (0.2-1.0); CO2 28.4 mmol/L (21.0-32.0); CREATININE 1.3 mg/dL (0.70-1.30); Calcium 9.1 mg/dL (8.5-10.1); Chloride 106 mmol/L (98-107); Estimated GFR 73.93 (mL/min/1.73m2); Glucose 84 mg/dL (74-106); Potassium 4.7 mmol/L (3.5-5.1); Sodium 142 mmol/L (136-145); TSH 1.71 uIU/Ml (0.36-3.74); Total Protein 7.3 g/dL (6.4-8.2)
== END 2023-07-31 17:08 | disposition home or self-care (01) ==
LOC: NCHCN 17:07
PROVIDERS: Visit Provider Student in an Organized Health Care Education/Training Program
DX: R07.9 Chest pain, unspecified (principal)
CPT/HCPCS: 80053; 84443

== ENCOUNTER → 2023-08-20 02:13 | Outpatient (CLI) | payer OTHER, SELFPAY ==
--- NOTE | 2023-08-20 | ETT_ITS ---
APPROVED REPORT Exam: Exercise Treadmill Patient Location: Out-Patient Room/Bed: Stress Nurse: Kacy Gonzalez RN Ordering Provider:AURY METZGER, Contact Number: [phone] BMI: 33.19 Baseline Rhythm: Sinus Rhythm Indications: Chest Pain, History of smoking Medical History Medical History: Former smoker Cardiac Medications: None Allergies: Hydrocodone Cardiac Risk Factors: Remote family history, former smoker Previous Cardiac Procedures: None Pretest Chest Pain Characteristics: None Exercise History: Indeterminate Physical Disabilities: None Lung Sounds: LCTA Heart Sounds: S1/S2, Regular Stress Test Details Test: Exercise stress testing was performed using a Joshua protocol. Rest Stress HR Resting HR Supine: 69 bpm Max Heart Rate (APMHR): 186 bpm Resting HR Standin bpm Target HR (85% APMHR): 158 bpm Max HR Achieved: 185 bpm % of APMHR: 99 Recovery HR: 81 bpm HR response to stress: Accelerated HR response to stress BP Resting BP Supine: 128/76 mmHg Resting BP Standin/84 mmHg Max BP: 192/78 mmHg Recovery BP: 136/80 mmHg BP response to stress: Normal blood pressure response to stress. ECG Resting ECG: Sinus Rhythm Ectopy: None Stress ECG: Sinus Rhythm, ST Change: No significant ST segment changes noted Recovery ECG: Sinus Rhythm Recovery ST Change: No significant ST segment changes noted Recovery Arrhythmia: None Clinical Reason for Termination: Target HR Achieved, SVT Stress Symptoms: Leg Fatigue Exercise duration: 9 min10 sec Highest Stage Reached: Stage 4: 4.2 mph at 16% grade. Exercise capacity: 10.4 METs Angina Score: None [place] Treadmill Score: 6.2 Rate Pressure Product: [id number] Stress ECG Conclusion 1. Resting electrocardiogram was normal 2. Patient exercised on Joshua protocol and completed a workload of 10.4 METS 3. Normal hemodynamic response to exercise. Patient achieved greater than 100% of predicted heart ra te for age 4. Patient had a rate related right bundle branch block. This is nonspecific. There was no electroc ardiographic evidence of myocardial ischemia [place] Treadmill Score is 6.2 which is Low risk. Stress Test Summary STAGE Time (mins) Speed (mph) Grade (%) HR BP SpO2 SYMPTOMS METS Supine 69 128/76 98% Standing 71 130/84 1 3 1.7 10 102 140/82 4.5 2 6 2.5 12 121 146/80 7 3 9 3.4 14 171 SVT - asymptomatic 10 1 min recovery 125 192/78 3 min recovery 85 152/78 6 min recovery 81 136/80 Patient tolerated stress well and was able to meet diagnostic target heart rate. Patient noted to go info a brief SVT at the very end of the test, patient was asymptomatic. Denied chest pain and adverse shortness of breath. Patients only symptom was that he could feel the incline in his legs. Patient blood pressure and heart rate returned to baseline, he remained asymptomatic, ambulatory and in no a pparent distress upon leaving.
== END ==
PROVIDERS: PCP Student in an Organized Health Care Education/Training Program; Visit Provider Student in an Organized Health Care Education/Training Program
DX: R07.9 Chest pain, unspecified (principal)
CPT/HCPCS: 93017

== ENCOUNTER 2023-08-20 15:07 | Outpatient (CLI) | payer OTHER, SELFPAY ==
[2023-08-20 13:44] LABS: C-Reactive Protein 0.74 mg/dL (<or=0.5)
== END 2023-08-20 15:08 | disposition home or self-care (01) ==
LOC: LBO 15:10
PROVIDERS: PCP Student in an Organized Health Care Education/Training Program; Visit Provider Surgery
DX: K62.5 Hemorrhage of anus and rectum; R10.11 Right upper quadrant pain
CPT/HCPCS: 36415; 86140

== ENCOUNTER 2023-08-28 17:26 | Outpatient (REF) | payer OTHER, SELFPAY ==
[2023-09-01 15:27] LABS: Calprotectin <50.0 mcg/g
== END 2023-08-28 17:27 | disposition home or self-care (01) ==
LOC: LBN 17:26
PROVIDERS: PCP Student in an Organized Health Care Education/Training Program; Visit Provider Surgery
DX: K52.9 Noninfective gastroenteritis and colitis, unspecified (principal); R10.11 Right upper quadrant pain; K62.5 Hemorrhage of anus and rectum
CPT/HCPCS: 83993

== ENCOUNTER 2023-12-13 10:25 | Emergency (ER) | payer OTHER, SELFPAY ==
[2023-12-13 10:31] VITALS: BP 157/95; PULSE 112; RESP 16; TEMP 36.4; O2SAT 98
--- NOTE | 2023-12-13 11:00 | DI.RAD_ITS ---
Exam(s) XR FOREARM LT EXAM: XR FOREARM LT CLINICAL HISTORY: fall from ladder, elbow pain. TECHNIQUE: 2D digital imaging was performed. COMPARISON: No exams were available for comparison FINDINGS: 3 views No evidence of fracture or dislocation of the forearm bones. Radial head and neck appear unremarkabl e. Bone density normal. No osseous lesions. No radiopaque foreign body. IMPRESSION: No acute osseous findings in the forearm bones. DATA REPOSITORY: RADIATION DOSE DELIVERED:
--- NOTE | 2023-12-13 11:00 | DI.RAD_ITS ---
Exam(s) XR HUMERUS LT EXAM: XR HUMERUS LT CLINICAL HISTORY: fall from ladder, distal hum and elbow pain swelli. TECHNIQUE: 2D digital imaging was performed. COMPARISON: No exams were available for comparison FINDINGS: Two views. No evidence of fracture of the humerus. No dislocation glenohumeral joint. No soft tissue calcifica tions. Bone density normal. No osseous lesions. No radiopaque foreign body IMPRESSION: No acute osseous findings in the humerus. DATA REPOSITORY: RADIATION DOSE DELIVERED:
--- NOTE | 2023-12-13 11:02 | DI.CT_ITS ---
Exam(s) CT HEAD CERVICAL SPINE WO EXAM: CT HEAD CERVICAL SPINE WO CLINICAL HISTORY: fall from ladder. TECHNIQUE: Imaging Protocol: Axial computed tomography images with coronal and sagittal reformatted images were created and reviewed COMPARISON: No exams were available for comparison FINDINGS: BRAIN: There are no skull fractures nor fluid in the visualized paranasal sinuses. Mild mucosal thickening noted in the posterior aspect of the left maxillary sinus. No associated flui d level. Other paranasal sinuses and mastoid air cells are clear. There is no evidence of intracranial hemorrhage, mass effect, or shift of midline structures. There are no extra-axial fluid collections. The ventricles are not enlarged or shifted and there is no blo od within the ventricular system nor within the basal cisterns. CERVICAL SPINE: Some motion artifact noted at C2-C3 level. There is no evidence of fracture nor listhesis. No significant prevertebral soft tissue swelling. There is no significant facet joint malalignment. No significant osseous lesions evident. IMPRESSION: No acute intracranial findings on this noninfused CT scan of the brain. No evidence of cervical spine fracture, malalignment, nor acute compromise of the cervical spinal can al. RADIATION DOSE DELIVERED: Total DLP DATA REPOSITORY: All CT scans at this facility are submitted to the National Radiology Data Registry (NRDR) Dose Index Registry (DIR) with the [employer] (ACR). RADIATION OPTIMIZATION: All CT scans at this facility use at least one of these dose optimization te chniques: automated exposure control; mA and/or kV adjustment per patient size (includes targeted exa ms where dose is matched to clinical indication); or iterative reconstruction.
--- NOTE | 2023-12-13 11:02 | DI.CT_ITS ---
Exam(s) CT CHEST/ABD/PEL W EXAM: CT CHEST/ABD/PEL W CLINICAL HISTORY: fall from ladder, tachycardia. TECHNIQUE: Imaging Protocol: Axial computed tomography images with coronal and sagittal reformatted images were created and reviewed CONTRAST MATERIAL: Intravenous: Omnipaque 350 Contrast volume:100 ml Oral: None COMPARISON: CT CT ABDOMEN PELVIS CTA from 07/10/2023 FINDINGS: CHEST: LUNGS: No obvious lung contusion or pleural effusion or pneumothorax. No rib fractures.. Mild incre ased markings in both lung bases probably due to a hypoaeration post trauma. No incidental concernin g lung nodules. MEDIASTINUM: No sternal fracture or mediastinal hematoma. Some increased density in the anterior med iastinal fat is consistent with remnant thymus tissue. No intrathoracic adenopathy. Visualized thyr oid unremarkable. CARDIAC: Heart size is normal. There is no pericardial effusion.Thoracic aorta appears unremarkable. OSSEOUS: No fractures.. No facet malalignment. No osseous lesions.. ABDOMEN: There is no ascites. No evidence of bowel wall nor mesenteric hematoma. LIVER: Intact. No lacerations nor subcapsular hematomas. No lesions. GALLBLADDER/BILIARY: No obvious gallbladder pathology. CBD is not dilated. PANCREAS: No evidence of pancreatic mass nor dilatation of the pancreatic duct. SPLEEN: Intact. Normal size. No lacerations. Splenic and portal veins are patent. ADRENALS: There are no significant adrenal masses. KIDNEYS: No renal lacerations nor subcapsular hematomas. Small benign cyst noted in the inferior daniel e of left kidney measuring 9 mm. Does not require further imaging workup.. No solid renal masses, c alculi, nor hydronephrosis nor hydroureter. ABDOMINAL AORTA: Unremarkable. Intact. No dissection. Aortoiliac segments also unremarkable. LYMPH NODES: There is no retroperitoneal nor paraaortic adenopathy. ABDOMINAL WALL: No evidence of significant anterior abdominal wall nor inguinal hernia. GI: No evidence of bowel wall hematoma. No bowel obstruction. No ileus pattern. PELVIS: LYMPH NODES: There is no intrapelvic nor inguinal adenopathy. GI: No evidence of appendicitis.No evidence of sigmoid diverticulitis. URINARY BLADDER: Unremarkable. Normal size. No masses nor clots within the lumen. Pelvic ureters n ot dilated. REPRODUCTIVE: Prostate size normal. Seminal vesicles unremarkable. OSSEOUS: No fractures. SI joints unremarkable. No incidental osseous lesions. IMPRESSION: 1. No significant acute trauma sequelae in the chest 2. No significant acute trauma sequelae in the abdomen and pelvis. 3. Significant incidental findings. RADIATION DOSE DELIVERED: Total DLP DATA REPOSITORY: All CT scans at this facility are submitted to the National Radiology Data Registry (NRDR) Dose Index Registry (DIR) with the [employer] (ACR). RADIATION OPTIMIZATION: All CT scans at this facility use at least one of these dose optimization te chniques: automated exposure control; mA and/or kV adjustment per patient size (includes targeted exa ms where dose is matched to clinical indication); or iterative reconstruction.
[2023-12-13 11:09] VITALS: BP 148/94; PULSE 95; RESP 18; TEMP 37.4; O2SAT 95
--- NOTE | 2023-12-13 11:21 | ED.GENADUL_ITS ---
Discharge Plan Disposition Patient Disposition: Home Condition: Stable Discharge Details Clinical Impression: Fall, Ankle swelling, Elbow swelling Primary Care Provider: Henri Gan ED Provider: Kaushik Rojas Home Meds and New Rx's Prescriptions: New cyclobenzaprine 5 mg tablet 5 mg PO QHS PRN (Reason: muscle spasm) Qty: 7 0RF Discharge Instructions Instructions: Swollen Joints Additional Instructions: Please continue with ice elevation and rest as well as anti-inflammatory medication at home. Please consider returning for repeat imaging. HPI General Date/Time Provider Initiated Documentation: 12/13/23 10:27 . HPI Narrative: 33-year-old male presents 1 day after falling from the top of the ladder off of the roof of his house injuring his left elbow and his right ankle, patient decided to try to rest last night and see how he felt in the morning is concerned that he may have broken his elbow and his ankle. He had his head without loss of consciousness. Denies neck pain chest pain or abdominal pain. Related Data Home Medications ?Medication ?Instructions ?Recorded ?Confirmed cyclobenzaprine 5 mg tablet 5 mg PO QHS PRN muscle spasm #7 12/13/23 tabs Previous Rx's ?Medication ?Instructions ?Recorded cyclobenzaprine 5 mg tablet 5 mg PO QHS PRN muscle spasm #7 12/13/23 tabs Allergies Allergy/AdvReac Type Severity Reaction Status Date / Time hydrocodone bitartrate (From AdvReac Mild Nausea Verified 12/13/23 12:49 Vicodin) General Stated Complaint: Orthopedic OBDULIO: 3 Exam Narrative Exam Narrative: Alert interactive appears moderately uncomfortable Airway intact tolerating secretions normal voice no stridor Tachycardia with strong peripheral pulses, no murmurs rubs or gallops appreciated Lungs clear bilaterally speaking full sentences no wheezes rales or rhonchi Abdomen soft nontender nondistended Pelvis stable Larger swelling to left elbow held in flexion, flexion and extension of fingers wrist and shoulder intact, soft compartments radial pulse intact median radial ulnar sensory distribution intact; large swelling to right ankle DP pulse intact tenderness over malleoli no calcaneal tenderness No midline spinal tenderness or step-off crepitus or deformity Course Vital Signs Vital signs: Vital Signs Temperature 36.4 C L 12/13/23 10:31 Pulse 112 H 12/13/23 10:31 Respiratory Rate 16 12/13/23 10:31 Blood Pressure 157/95 H 12/13/23 10:31 Pulse Oximetry 98 12/13/23 10:31 Temperature 37.4 C 12/13/23 11:09 Temperature Source Skin 12/13/23 11:09 Pulse 95 H 12/13/23 11:09 Respiratory Rate 18 12/13/23 11:09 Blood Pressure 148/94 H 12/13/23 11:09 Blood Pressure Mean 112 12/13/23 11:09 Blood Pressure Position Sitting 12/13/23 10:31 Pulse Oximetry 95 12/13/23 11:09 Oxygen Delivery Method Room Air 12/13/23 11:09 Oxygen Flow Rate 0 12/13/23 11:09 Pain Level 10 12/13/23 10:31 Medical Decision Making 33-year-old male presents after fall from roof top of the ladder, pain and swelling to left elbow and right ankle, no loss of conscious denies neck back chest or abdominal pain however given degree of fall and distracting injuries must consider thoracoabdominal trauma as well as possible fracture dislocation of left elbow/fracture dislocation of right ankle, patient placed in c-collar, IV access has been obtained analgesia and fluids have been administered, heart rate is improved to 95 bpm from 112 bpm, blood pressure 148/94, airway breathing and circulation intact disability as described, lower suspicion for intracranial injury or cervical spine injury however given distracting injuries will take precaution obtain appropriate imaging 15: 15 patient was notably no acute distress. CT head CT C-spine and CT chest abdomen pelvis unremarkable, x-ray upper extremity and lower extremity negative for acute fracture. Given degree of pain and swelling I am still concerned for an occult fracture. I have expressed this to the patient and encouraged obtaining CT of elbow and CT of ankle however patient does not want to go forward with further imaging. Patient would like a boot for his ankle and some crutches. I will provide him with such material as well as a work note and analgesia and anti-inflammatory. Given strict return precautions to obtain repeat imaging. Patient does not want orthopedic referral at this time Quality:SDOH Health Related Social Needs: No Data to Display PFSH All Active Problems (Updated 12/13/23 @ 15:17 by Kaushik Rojas MD) Elbow swelling (Acute) Ankle swelling (Acute) Fall (Acute) Rectal hemorrhage (Acute) Postprandial diarrhea (Acute) Postprandial RUQ pain (Acute) Laceration (Acute) Cough (Acute) Surgical History WISDOM TEETH REMOVAL STATES 2-3 YEARS AGO IN [place] Social History Smoking/Tobacco Use Status: Former Tobacco Use Quit Date: 03/25/22 Tobacco: How many years used: 20 Smoking risk assessment performed?: Yes Alcohol Intake: current Alcohol Intake frequency: a few times a week Alcohol type: beer and hard liquor Drug use: Current Sobriety Substance use type: does not use and former substance user Housing: house Do you feel safe at home: Yes Do you feel safe in your relationship?: Yes
[2023-12-13] MEDS: fentaNYL 100 MCG/2 ML VIAL 25 MCG IVP (11:33)
[2023-12-13 11:38] LABS: Abs Immature Grans 0.02 10^3/uL (0.0-0.06); Absolute Basophil Count 0.04 10^3/uL (0.0-0.2); Absolute Eosinophil Count 0.03 10^3/uL (0.0-0.7); Absolute Lymphocyte Count 1.44 10^3/uL (1.2-3.4); Absolute Monocyte Count 0.59 10^3/uL (0.1-0.8); Absolute Neutrophil Count 7.59 10^3/uL (1.2-6.7); Basophils % 0.4 %; Eosinophils % 0.3 %; HCT 46.2 % (40.0-50.0); HGB 15.6 g/dL (13.5-17.5); Immature Grans % 0.2 %; Lymphocytes % 14.8 %; MCH 28.4 pg (27.0-33.0); MCHC 33.8 % (32.0-36.0); MCV 84 fL (80-95); MPV 8.4 fL (8.0-11.0); Monocytes % 6.1 %; Neutrophils % 78.2 %; Platelet Count 259 10^3/uL (130-400); RBC 5.49 10^6/uL (4.36-5.78); RDW 13.1 % (11.8-14.1); WBC 9.71 10^3/uL (4.4-10.8)
--- NOTE | 2023-12-13 11:45 | DI.RAD_ITS ---
Exam(s) XR ANKLE RT COMPLETE EXAM: XR ANKLE RT COMPLETE CLINICAL HISTORY: fall from ladder. TECHNIQUE: 2D digital imaging was performed. COMPARISON: No exams were available for comparison FINDINGS: 3 views There is soft tissue swelling around the ankle, more so laterally than medially. No evidence of frac ture or widening the ankle mortise. Talar dome unremarkable. Small in these 0 fight is noted at the Achilles tendon insertion site on the posterior calcaneus. Os trigonum incidentally noted. IMPRESSION: Soft tissue swelling. No acute osseous findings in the ankle. DATA REPOSITORY: RADIATION DOSE DELIVERED:
--- NOTE | 2023-12-13 11:45 | DI.RAD_ITS ---
Exam(s) XR TIB/FIB RT EXAM: XR TIB/FIB RT CLINICAL HISTORY: fall from ladder. TECHNIQUE: 2D digital imaging was performed. COMPARISON: No exams were available for comparison FINDINGS: Two views. No evidence of fracture or radiopaque foreign body. Bone density normal. No osseous lesions. Soft tissue swelling around the ankle noted. IMPRESSION: No acute osseous findings. DATA REPOSITORY: RADIATION DOSE DELIVERED:
[2023-12-13 11:55] LABS: ALT 35 U/L (16-63); AST 33 U/L (15-37); Alkaline Phosphatase 105 U/L (46-116); Anion Gap 12.7 mmol/L (3-11); BUN 15 mg/dL (7-18); Bilirubin, Total 0.69 mg/dL (0.2-1.0); CO2 24.3 mmol/L (21.0-32.0); CREATININE 1.2 mg/dL (0.70-1.30); Calcium 8.6 mg/dL (8.5-10.1); Chloride 104 mmol/L (98-107); Estimated GFR 81.38 (mL/min/1.73m2); Glucose 100 mg/dL (74-106); Potassium 3.7 mmol/L (3.5-5.1); Sodium 141 mmol/L (136-145); Total Protein 7.5 g/dL (6.4-8.2)
[2023-12-13 11:59] LABS: INR 1.1 (0.9-1.1); PTT Activated 30.2 sec (23.6-32.8)
[2023-12-13] MEDS: Normal Saline - Diluent 50 ML VIAL IJ (12:13)
[2023-12-13] MEDS: Omnipaque 350 MG/ML 100 ML BTL IJ (12:14)
[2023-12-13] MEDS: ACETAMINOPHEN 1,000 MG/100 ML BTL 400 MG IVPB (12:49)
[2023-12-13] MEDS: Normal Saline 1,000 ML 1000 ML IV (12:49)
[2023-12-13 12:50] VITALS: BP 159/87; PULSE 87; RESP 18; TEMP 37.1; O2SAT 97
--- NOTE | 2023-12-13 12:51 | DI.VRAD_ITS ---
PROCEDURE INFORMATION: Exam: XR Right Tibia and Fibula Exam date and time: 12/13/2023 11:56 AM Age: 33 years old Clinical indication: Injury or trauma; Blunt trauma; Lower leg; Right; Injury details: Fall from top of ladder at roof TECHNIQUE: Imaging protocol: Radiologic exam of the right tibia and fibula. Views: 2 views. COMPARISON: No relevant prior studies available. FINDINGS: Bones/joints: Normal. Soft tissues: Normal. IMPRESSION: No acute findings. Dictated and Authenticated by: Alma Delia Phoenix MD. Ordering:CATRACHITO Faulkner MD
--- NOTE | 2023-12-13 12:52 | DI.VRAD_ITS ---
PROCEDURE INFORMATION: Exam: XR Right Ankle Exam date and time: 12/13/2023 11:56 AM Age: 33 years old Clinical indication: Injury or trauma; Blunt trauma; Ankle; Right; Injury details: Fall from top of ladder/ladder slid out while getting onto from roof TECHNIQUE: Imaging protocol: Radiologic exam of the right ankle. Views: 3 or more views. COMPARISON: CR XR TIB/FIB RT 12/13/2023 11:56 AM FINDINGS: Bones/joints: No acute or suspicious osseous abnormalities. No articular abnormalities. Small bony projection at the Achilles tendon insertion site. Soft tissues: Ankle swelling, greatest over the lateral malleolus the. Other findings: Incidental note is made of an os trigonum, an accessory ossicle. IMPRESSION: 1. No evidence of acute osseous injury. 2. Enthesopathy at the Achilles tendon insertion site. Dictated and Authenticated by: Alma Delia Phoenix MD. Ordering:CATRACHITO Faulkner MD
--- NOTE | 2023-12-13 12:53 | DI.VRAD_ITS ---
PROCEDURE INFORMATION: Exam: XR Left Humerus Exam date and time: 12/13/2023 11:53 AM Age: 33 years old Clinical indication: Injury or trauma; Bleeding/hemorrhage; Arm, upper; Left; Injury details: Fall from top of ladder/ ladder slid out as steeping onto from roof TECHNIQUE: Imaging protocol: Radiologic exam of the left humerus. Views: 2 or more views. COMPARISON: CT HEAD CERVICAL SPINE WO 12/13/2023 11:38 AM FINDINGS: Bones/joints: Normal. Soft tissues: Normal. IMPRESSION: No acute findings. Dictated and Authenticated by: Alma Delia Phoenix MD. Ordering:PTAMANNA Faulkner MD
--- NOTE | 2023-12-13 12:53 | DI.VRAD_ITS ---
PROCEDURE INFORMATION: Exam: XR Left Forearm Exam date and time: 12/13/2023 11:46 AM Age: 33 years old Clinical indication: Injury or trauma; Fall; Bleeding/hemorrhage; Arm, lower; Left TECHNIQUE: Imaging protocol: Radiologic exam of the left forearm. Views: 2 views. COMPARISON: No relevant prior studies available. FINDINGS: Bones/joints: No acute or suspicious osseous abnormalities. No articular abnormalities. Soft tissues: Soft tissue swelling overlying the lateral/dorsal aspect of the elbow. IMPRESSION: No evidence of acute osseous injury. Dictated and Authenticated by: Alma Delia Phoenix MD. Ordering:CATRACHITO Faulkner MD
--- NOTE | 2023-12-13 12:57 | DI.VRAD_ITS ---
PROCEDURE INFORMATION: Exam: CT Chest With Contrast; Diagnostic Exam date and time: 12/13/2023 12:18 PM Age: 33 years old Clinical indication: Injury or trauma; Blunt; Generalized; Other: Fall from ladder, tachycardia TECHNIQUE: Imaging protocol: Diagnostic computed tomography of the chest with contrast. 3D rendering (Not supervised by radiologist): MIP and/or 3D reconstructed images were created by the technologist. Contrast material: OMNIPAQUE 350; Contrast volume: 100 ml; Contrast route: INTRAVENOUS (IV); COMPARISON: CT HEAD CERVICAL SPINE WO 12/13/2023 11:38 AM FINDINGS: Lungs: Dependent changes at the lung bases. No acute lung infiltrates. No suspicious pulmonary nodules. Pleural spaces: Unremarkable. No pneumothorax. No pleural effusion. Heart: Unremarkable. No cardiomegaly. No pericardial effusion. Coronary arteries: No coronary artery calcification noted. Lymph nodes: Unremarkable. No enlarged lymph nodes. Vasculature: Unremarkable. No aortic aneurysm. Bones/joints: Unremarkable. No acute fracture. Soft tissues: Unremarkable. IMPRESSION: 1. No acute traumatic injuries identified in the chest. 2. Please refer to separately dictated abdomen pelvis CT report for description of findings in this region. PROCEDURE INFORMATION: Exam: CT Abdomen And Pelvis With Contrast Exam date and time: 12/13/2023 12:18 PM Age: 33 years old Clinical indication: Injury or trauma; Blunt; Generalized; Other: Fall from ladder, tachycardia TECHNIQUE: Imaging protocol: Computed tomography of the abdomen and pelvis with contrast. 3D rendering (Not supervised by radiologist): MIP and/or 3D reconstructed images were created by the technologist. Contrast material: OMNIPAQUE 350; Contrast volume: 100 ml; Contrast route: INTRAVENOUS (IV); COMPARISON: CT ABDOMEN PELVIS CTA 07/10/2023 12:31 PM FINDINGS: Limitations: Beam hardening artifact related to positioning of the patient's arms. Liver: Normal. No mass. Gallbladder and biliary ducts: Normal. No calcified stones. No ductal dilation. Pancreas: Normal. No ductal dilation. Spleen: Normal. No splenomegaly. Adrenal glands: Normal. No mass. Kidneys and ureters: Lower pole 1 cm (9 HU) likely benign water attenuation left renal cyst, requiring no further evaluation. Otherwise unremarkable kidneys. Stomach and bowel: Unremarkable. No obstruction. No mucosal thickening. Appendix: Normal appendix. Intraperitoneal space: Unremarkable. No free air. No significant fluid collection. Vasculature: Unremarkable. No abdominal aortic aneurysm. Lymph nodes: Unremarkable. No enlarged lymph nodes. Urinary bladder: Unremarkable as visualized. Reproductive: Unremarkable as visualized. Bones/joints: Unremarkable. No acute fracture. Soft tissues: Unremarkable. IMPRESSION: 1. No acute traumatic injuries identified in the abdomen and pelvis. 2. Please refer to separately dictated chest CT report for description of findings in the chest. Dictated and Authenticated by: Alma Delia Phoenix MD. Ordering:CATRACHITO Faulkner MD
--- NOTE | 2023-12-13 13:33 | DI.VRAD_ITS ---
PROCEDURE INFORMATION: Exam: CT Head Without Contrast Exam date and time: 12/13/2023 11:38 AM Age: 33 years old Clinical indication: Injury or trauma; Other: Fall from ladder, tachycardia TECHNIQUE: Imaging protocol: Computed tomography of the head without contrast. COMPARISON: No relevant prior studies available. FINDINGS: Brain: Normal. No hemorrhage. Unremarkable white matter. No mass effect. Cerebral ventricles: No ventriculomegaly. Paranasal sinuses: Small retention cyst in the left maxillary sinus. Mild mucosal thickening in the right maxillary sinus. Mastoid air cells: Visualized mastoid air cells are well aerated. Bones: Unremarkable. No acute fracture. Soft tissues: Unremarkable. IMPRESSION: No acute intracranial abnormalities. PROCEDURE INFORMATION: Exam: CT Cervical Spine Without Contrast Exam date and time: 12/13/2023 11:38 AM Age: 33 years old Clinical indication: Injury or trauma; Other: Fall from ladder, tachycardia TECHNIQUE: Imaging protocol: Computed tomography of the cervical spine without contrast. COMPARISON: No relevant prior studies available. FINDINGS: Bones: Mild dextroscoliosis of the cervical spine some probably positional. No acute fracture. Normal alignment. No significant disc bulge or herniation. No severe spinal canal stenosis. No significant neural foraminal narrowing. Lungs: Lung apices are normal. Soft tissues: Unremarkable. IMPRESSION: No acute findings. Dictated and Authenticated by: Timothy Park MD. Ordering:CATRACHITO Faulkner MD
== END 2023-12-13 16:09 | disposition home or self-care (01) ==
PROVIDERS: Emergency Provider Emergency Medicine; PCP Student in an Organized Health Care Education/Training Program
DX: M25.422 Effusion, left elbow (principal); M25.471 Effusion, right ankle; W11.XXXA Fall on and from ladder, initial encounter
CPT/HCPCS: 29515; 74177; 80053; 96361; 96365; 96375; 99285; 70450; 71260; 72125; 73060; 73090; 73590; 73610; 85025; 85610; 85730; 99283; J0131; J3010; J3490

== ENCOUNTER 2024-01-14 09:57 | Outpatient (CLI) | payer OTHER, SELFPAY ==
--- NOTE | 2024-01-14 10:04 | DI.RAD_ITS ---
Exam(s) XR ELBOW LT COMPLETE EXAM: XR ELBOW LT COMPLETE CLINICAL HISTORY: LEFT ELBOW PAIN. TECHNIQUE: 2D digital imaging was performed. Three views. COMPARISON: No exams were available for comparison FINDINGS: BONES: No acute fracture is present. No bony destructive lesion is seen. JOINTS: The elbow is normally aligned. No joint effusion is seen. SOFT TISSUE: Normal. IMPRESSION: Unremarkable radiographs of the left elbow. DATA REPOSITORY: RADIATION DOSE DELIVERED:
== END 2024-01-14 09:58 | disposition home or self-care (01) ==
PROVIDERS: PCP Student in an Organized Health Care Education/Training Program; Referring Provider Student in an Organized Health Care Education/Training Program; Visit Provider Physician Assistant
DX: M25.522 Pain in left elbow (principal)
CPT/HCPCS: 73080

== ENCOUNTER 2024-01-14 11:38 | Outpatient (CLI) | payer OTHER, SELFPAY ==
--- NOTE | 2024-01-14 11:30 | DI.MRI_ITS ---
Exam(s) MR UPPER JOINT LT WO EXAM: MR UPPER JOINT LT WO CLINICAL HISTORY: PAIN,traumatic rupture lt triceps tendon, strain. TECHNIQUE: Multiplanar multisequence MRI was performed. COMPARISON: Plain films January 15 FINDINGS: Exam limited by motion. Elbow joint: There is a small joint effusion Bones: Edema in the lateral epicondyle consistent with contusion. No discrete fracture. Biceps tendon: Intact. No tendinosis. Brachialis tendon: Edema in the brachialis muscle distally. The brachialis tendon appears intact. Common flexor tendons: Appears intact where there is some edema in the surrounding musculature in the forearm. Common extensor tendons: Thickening and edema seen near the humeral attachment with surrounding fluid consistent with partial tear. Soft tissues: Unremarkable. IMPRESSION: Severe tear proximal common extensor tendon. Contusion lateral femoral condyle. Joint effusion. Edema in the distal brachialis and pronator teres muscles. The tendons appear intact. DATA REPOSITORY:
--- NOTE | 2024-01-14 12:05 | DI.RAD_ITS ---
Exam(s) XR EYE FOREIGN BODY EXAM: XR EYE FOREIGN BODY INDICATION: PRE MRI FB,h/o metal in eye. COMPARISON: No exams were available for comparison TECHNIQUE: 2D digital imaging was performed. Two views. FINDINGS: No evidence of radiopaque foreign body. No evidence of fracture. The sinuses are grossly clear. DATA REPOSITORY: RADIATION DOSE DELIVERED:
== END 2024-01-14 11:58 ==
LOC: DI 11:41
PROVIDERS: PCP Student in an Organized Health Care Education/Training Program; Visit Provider Student in an Organized Health Care Education/Training Program
DX: S46.312A Strain of muscle, fascia and tendon of triceps, left arm, initial encounter (principal); X58.XXXA Exposure to other specified factors, initial encounter; W45.8XXD Other foreign body or object entering through skin, subsequent encounter
CPT/HCPCS: 70030; 73221

== ENCOUNTER 2024-02-02 15:54 | Outpatient (CLI) | payer OTHER, SELFPAY ==
--- NOTE | 2024-02-02 | DI.RAD_ITS ---
Exam(s) XR CHEST 2V PA LATERAL EXAM: XR CHEST 2V PA LATERAL CLINICAL HISTORY: COUGH, R05.9 TECHNIQUE: 2D digital imaging was performed. Two views. COMPARISON: No exams were available for comparison FINDINGS: HEART: Normal size. Aorta: Not dilated. PULMONARY VASCULATURE: Normal. MEDIASTINUM: Unremarkable. LUNGS: Clear. PLEURAL SPACE: No pleural effusion or pneumothorax. BONE:Unremarkable for age. SOFT TISSUES: Unremarkable. IMPRESSION: No acute abnormality. DATA REPOSITORY: RADIATION DOSE DELIVERED:
== END 2024-02-02 16:14 ==
LOC: DI 15:55
PROVIDERS: PCP Student in an Organized Health Care Education/Training Program; Visit Provider Nurse Practitioner Family
DX: R05.9 Cough, unspecified (principal)
CPT/HCPCS: 71046

== ENCOUNTER 2025-03-06 18:03 | Emergency (ER) | payer OTHER, SELFPAY ==
[2025-03-06 18:07] VITALS: BP 167/102; PULSE 70; RESP 16; TEMP 37.3; O2SAT 98
[2025-03-06 18:12] VITALS: BP 167/102; PULSE 70; RESP 16; TEMP 37.3; O2SAT 98
--- NOTE | 2025-03-06 18:55 | W.ED.GENAD ---
Discharge Plan Disposition Patient Disposition: Home Condition: Good Discharge Details Clinical Impression: Pain, dental, Pulpitis Primary Care Provider: Henri Gan ED Provider: Ewa Delaney Home Meds and New Rx's Prescriptions: New penicillin V potassium 500 mg tablet 500 mg PO BID Qty: 6 0RF Discharge Instructions Instructions: Dental Pain ED Additional Instructions: Tylenol and ibuprofen over the counter for pain; follow the directions on the bottle. Antibiotic twice a day for the next 5 days. Keep your appointment for your root canal. Return to the emergency department for new or worsening symptoms including fever, facial swelling, neck pain, inability to swallow, or if you have any other concerns. HPI General Mode of arrival: ambulatory. Date/Time Provider Initiated Documentation: 03/06/25 18:07. Limitations to Documentation: no limitations. Information obtained by: patient. HPI Narrative: 34yo M presenting with dental pain. Cracked tooth; plan for root canal on Thursday. Worsening pain over the weekend despite tylenol and ibuprofen at home. Is tolerable but definitely getting worse. No facial swelling, neck pain, or difficulty swallowing. Feels generally 'run down'. Otherwise in his usual state of health with no fevers, chils, rash, nausea, vomiting, shortness of breath, or other concerns. Related Data Home Medications ?Medication ?Instructions ?Recorded ?Confirmed penicillin V potassium 500 mg 500 mg PO BID #6 tabs 03/06/25 tablet Previous Rx's ?Medication ?Instructions ?Recorded penicillin V potassium 500 mg 500 mg PO BID #6 tabs 03/06/25 tablet Allergies Allergy/AdvReac Type Severity Reaction Status Date / Time hydrocodone bitartrate (From AdvReac Mild Nausea Verified 03/06/25 18:11 Vicodin) General Stated Complaint: DentalOral OBDULIO: 4 Review of Systems Narrative: see HPI Exam Narrative Exam Narrative: General: Alert, well appearing, well nourished, in no acute distress. Head: Normocephalic, atraumatic Neck: Trachea midline, ?Neck supple. No anterior neck tenderness. ENT: ?MMM.? No oropharygeal lesions or exudate. No evident intraoral abscess. #5 & #6 tender to percussion. Cardiac: ?RRR Resp: No respiratory distress. Speaking in full sentences. Abd: ?Non-distended Neurologic: GCS 15. ? Moves all extremities freely against gravity Course Vital Signs Vital signs: Vital Signs Temperature 37.3 C 03/06/25 18:07 Pulse 70 03/06/25 18:07 Respiratory Rate 16 03/06/25 18:07 Blood Pressure 167/102 H 03/06/25 18:07 Pulse Oximetry 98 03/06/25 18:07 Temperature 37.3 C 03/06/25 18:12 Pulse 70 03/06/25 18:12 Respiratory Rate 16 03/06/25 18:12 Blood Pressure 167/102 H 03/06/25 18:12 Pulse Oximetry 98 03/06/25 18:12 Pain Level 3 03/06/25 18:21 Medical Decision Making 34yo M presenting with dental pain. Cracked tooth; plan for root canal on Thursday however worsening pain over the weekend. Hypertensive on arrival, vital signs otherwise reassuring. Well appearing on exam, no facial swelling or neck tenderness, no evident intraoral abscess; does have tenderness to percussion over #5 & #6. Exam not suggestive of deep space neck infection, buchal space infection, sepsis, other emergent process; no indication for labs or CT imaging. Will treat with IM toradol and PO pencillin for pulpitits, encouraged patient to keep appt for root canal on Thursday. Advised him to schedule a PCP appointment for his blood pressure which is high here today. Discharged home; disharge instructions and return precuations were reviewed with patient who verbalized understanding. All questions were answered and he is in full agreement with the plan. PFSH All Active Problems (Updated 03/06/25 @ 19:30 by Ewa Delaney MD) Pulpitis (Acute) Pain, dental (Acute) Partial tear of common extensor tendon of left elbow (Acute) Left elbow contusion (Acute 12/12/23) Rectal hemorrhage (Acute) Postprandial diarrhea (Acute) Postprandial RUQ pain (Acute) Laceration (Acute) Cough (Acute) Surgical History WISDOM TEETH REMOVAL STATES 2-3 YEARS AGO IN [place] Social History Smoking/Tobacco Use Status: Former Tobacco Use Quit Date: 03/25/22 Tobacco: How many years used: 20 Smoking risk assessment performed?: Yes Alcohol Intake: current Alcohol Intake frequency: a few times a week Alcohol type: beer and hard liquor Drug use: Current Sobriety Substance use type: does not use and former substance user Housing: house Do you feel safe at home: Yes Do you feel safe in your relationship?: Yes PAWSS Have you Been Recently Intoxicated or Drunk Within the Last 30 days?: No Have you Ever Experienced Previous Episodes of Alcohol Withdrawal?: No Have you ever Experienced Withdrawal Seizures?: No Have you ever Experienced Delirium Tremens(DT)s?: No Have you ever undergone Alcohol Rehabilitation Treatment (i.e, inpt ot outpatient treatment programs)?: No Have you ever Experienced Blackouts?: No Have you ever Combined Alcohol with other Downers within the last 90 days?: No Have you ever Combined Alcohol with any other Substance of Abuse during the last 90 days?: No Result: 0
[2025-03-06] MEDS: Penicillin V POTASSIUM 500 MG TAB PO (19:41)
[2025-03-06] MEDS: Penicillin V POTASSIUM 500 MG TAB, 4 TABS/BTL PO (19:41)
== END 2025-03-06 19:50 | disposition home or self-care (01) ==
LOC: ER 19:36
PROVIDERS: Emergency Provider Student in an Organized Health Care Education/Training Program; PCP Student in an Organized Health Care Education/Training Program
DX: R68.84 Jaw pain (principal); K04.01 Reversible pulpitis; K08.89 Other specified disorders of teeth and supporting structures
CPT/HCPCS: 99283